=== PATIENT | female | born 1990 | race American Indian/Alaskan Native ===

== ENCOUNTER 2016-05-21 11:27 | Emergency (ER) | payer MEDICAID ==
[2016-05-21 12:27] VITALS: BP 120/77
--- NOTE | 2016-05-21 14:44 | Emergency Department Report ---
- General Chief Complaint: Upper Respiratory Infection Stated Complaint: CHEST PAIN/COUGHING UP FLIM/SORE THROAT Time Seen by Provider: 05/21/16 13:36 Source: patient Mode of arrival: Ambulatory Limitations: No Limitations - History of Present Illness MD Complaint: fever, cough, sore throat, nasal congestion -: Gradual, days(s) Severity: mild Quality: aching Context: sick contacts Associated Symptoms: fever, chills, myalgias, diaphoresis, headache, nasal congestion, sore throat, cough, nausea. denies: stiff neck, chest pain, shortness of breath, abdominal pain, vomiting, diarrhea, dysuria - Related Data Previous Rx's Medication Instructions Recorded Last Taken Type Azithromycin [Zithromax Z-KVNG] 250 mg PO QDAY #6 tablet 05/21/16 Unknown Rx Promethazine /Codeine 5 ml PO Q6H PRN #60 udc 05/21/16 Unknown Rx [Phenergan/Codeine 6.25-10 mg/5Ml] predniSONE [Deltasone] 50 mg PO QDAY #6 tab 05/21/16 Unknown Rx Allergies Allergy/AdvReac Type Severity Reaction Status Date / Time No Known Allergies Allergy Unverified 05/21/16 12:24 ED Review of Systems ROS: Stated complaint: CHEST PAIN/COUGHING UP FLIM/SORE THROAT Other details as noted in HPI Constitutional: chills, fever, malaise Eyes: denies: eye pain, eye discharge, vision change ENT: throat pain. denies: ear pain Respiratory: cough. denies: shortness of breath, SOB at rest, wheezing Cardiovascular: denies: chest pain, palpitations Endocrine: no symptoms reported Gastrointestinal: nausea. denies: abdominal pain, diarrhea Genitourinary: denies: urgency, dysuria, discharge Musculoskeletal: denies: back pain, joint swelling, arthralgia Skin: denies: rash, lesions Neurological: denies: headache, weakness, paresthesias Psychiatric: denies: anxiety, depression Hematological/Lymphatic: denies: easy bleeding, easy bruising ED Past Medical Hx - Past Medical History Hx Hypertension: Yes - Surgical History Past Surgical History?: No - Medications Home Medications: Home Medications Medication Instructions Recorded Confirmed Last Taken Type Azithromycin [Zithromax Z-KVNG] 250 mg PO QDAY #6 tablet 05/21/16 Unknown Rx Promethazine /Codeine 5 ml PO Q6H PRN #60 udc 05/21/16 Unknown Rx [Phenergan/Codeine 6.25-10 mg/5Ml] predniSONE [Deltasone] 50 mg PO QDAY #6 tab 05/21/16 Unknown Rx ED Physical Exam - General Limitations: No Limitations General appearance: alert, in no apparent distress - Head Head exam: Present: atraumatic, normocephalic - Eye Eye exam: Present: normal appearance - ENT ENT exam: Present: mucous membranes moist - Neck Neck exam: Present: normal inspection. Absent: tenderness, meningismus, full ROM, lymphadenopathy - Respiratory Respiratory exam: Present: normal lung sounds bilaterally. Absent: respiratory distress, wheezes, rales, rhonchi, stridor - Cardiovascular Cardiovascular Exam: Present: regular rate, normal rhythm. Absent: systolic murmur, diastolic murmur, rubs, gallop - GI/Abdominal GI/Abdominal exam: Present: soft, normal bowel sounds. Absent: distended, tenderness, guarding, rebound, rigid - Extremities Exam Extremities exam: Present: normal inspection - Back Exam Back exam: Present: normal inspection - Neurological Exam Neurological exam: Present: alert, oriented X3 - Psychiatric Psychiatric exam: Present: normal affect, normal mood - Skin Skin exam: Present: warm, dry, intact, normal color. Absent: rash ED Course Vital Signs 05/21/16 12:15 Temperature 98.4 F Pulse Rate 81 Respiratory 19 Rate Blood Pressure 120/77 O2 Sat by Pulse 100 Oximetry Critical care attestation.: If time is entered above; I have spent that time in minutes in the direct care of this critically ill patient, excluding procedure time. ED Disposition Clinical Impression: URI (upper respiratory infection) Disposition: DISCHARGED TO HOME OR SELFCARE Is pt being admited?: No Condition: Stable Instructions: Upper Respiratory Infection (ED) Prescriptions: Azithromycin [Zithromax Z-KVNG] 250 mg PO QDAY #6 tablet predniSONE [Deltasone] 50 mg PO QDAY #6 tab Promethazine /Codeine [Phenergan/Codeine 6.25-10 mg/5Ml] 5 ml PO Q6H PRN #60 udc PRN Reason: cough Referrals: PRIMARY CARE,MD [Primary Care Provider] - 3-5 Days Forms: Work/School Release Form(ED) Time of Disposition: 14:44
== END 2016-05-21 14:52 | disposition home or self-care (01) ==
LOC: ED 11:27
DX: J06.9 Acute upper respiratory infection, unspecified (principal); I10 Essential (primary) hypertension
CPT/HCPCS: 99282

== ENCOUNTER 2018-04-28 16:26 | Outpatient (CLI) | payer MEDICAID ==
[2018-04-28] MEDS ORDERED: LACTATED RINGERS 500 ML IV ONE (17:12)
[2018-04-28 18:08] LABS: Bilirubin,Urine NEG (Negative); Blood,Urine NEG (Negative); Color,Urine Yellow (Yellow); Mucus,Urine 2+ /HPF; Protein,Urine <15 mg/dL mg/dL (Negative)
[2018-04-28 18:37] LABS: Hematocrit 30.6 % (30.3-42.9); Hemoglobin 10.6 gm/dl (10.1-14.3); Mean Corpuscular HGB Conc 35 % (30-34); Mean Corpuscular Volume 101 fl (79-97); Platelet Count 182 K/mm3 (140-440); Red Blood Count 3.03 M/mm3 (3.65-5.03); Red Cell Distribution Width 15.5 % (13.2-15.2)
[2018-04-28 18:54] VITALS: BP 132/72
--- NOTE | 2018-04-28 19:06 | Ultrasound Report ---
FINAL REPORT EXAM: US OB LIMITED HISTORY: r/o abruption , clinical age 23 weeks 1 day TECHNIQUE: Ultrasound evaluation of the gravid uterus PRIORS: 02/24/2018 FINDINGS: There is a single viable intrauterine with documented cardiac activity. There is no ultras ound evidence of placenta previa or abruption. The maternal cervix is closed. The quantity of visua lized amniotic fluid appears grossly normal. anatomy not assessed with this limited evaluation. Heart rate: 161 beats per minute position: Transverse with head to maternal left Placental position: Anterior, grade 0 IMPRESSION: Single viable intrauterine without ultrasound evidence of placenta abruption in provided im ages
== END 2018-04-28 19:58 | disposition home or self-care (01) ==
LOC: TRG 16:26
PROVIDERS: ATTEND Obstetrics & Gynecology
DX: O47.02 False labor before 37 completed weeks of gestation, second trimester (principal); Z3A.23 23 weeks gestation of pregnancy
CPT/HCPCS: 36415; 76815; 81001; 85027

== ENCOUNTER 2018-07-10 12:05 | Outpatient (CLI) | payer MEDICAID ==
[2018-07-10] MEDS ORDERED: LACTATED RINGERS 500 ML IV ONE (12:10)
[2018-07-10 12:34] VITALS: BP 114/75
[2018-07-10 13:15] LABS: Bacteria,Urine 1+ /HPF (Negative); Bilirubin,Urine NEG (Negative); Blood,Urine NEG (Negative); Color,Urine Yellow (Yellow); Protein,Urine <15 mg/dL mg/dL (Negative); Urobilinogen,Urine < 2.0 mg/dL (<2.0); WBC,Urine < 1.0 /HPF (0.0-6.0)
[2018-07-10] MEDS ORDERED: BRETHINE ONE (13:32)
[2018-07-10] MEDS ORDERED: BRETHINE SUB-Q SCH (14:00)
[2018-07-10] MEDS ORDERED: ceFAZolin 2 GM in NACL 0.9% 100 ML IV ONE (15:12)
[2018-07-10] MEDS ORDERED: ANCEF/STERILE WATER 2 GM/20 ML 2 GM/20 ML SYRINGE IV ONE (15:22)
[2018-07-10] MEDS ORDERED: TYLENOL PO STA (15:28)
== END 2018-07-10 16:06 | disposition home or self-care (01) ==
LOC: TRG 12:05
PROVIDERS: ATTEND Obstetrics & Gynecology
DX: Z3A.33 33 weeks gestation of pregnancy (principal); O47.03 False labor before 37 completed weeks of gestation, third trimester
CPT/HCPCS: 81001; 87086; J0690; J3105; J7120

== ENCOUNTER 2018-08-13 17:05 | Outpatient (CLI) | payer MEDICAID ==
[2018-08-13 19:11] VITALS: BP 107/73
--- NOTE | 2018-08-13 20:20 | Ultrasound Report ---
PROCEDURE: US OB BPP WO NON-STRESS HISTORY: decrease movement FINDINGS: Real-time ultrasound the pelvis was performed with attention to the gravid uterus. Biophysical profile was 8 of 8. cardiac activity is present at 1 65 bpm. IMPRESSION: Biophysical profile 8 of 8 This document is electronically signed by Oziel Wills MD., Aug 13 2018 08:18:47 PM ET
[2018-08-13] MEDS ORDERED: LACTATED RINGERS 1,000 ML IV ONE (20:21)
--- NOTE | 2018-08-13 20:21 | Ultrasound Report ---
PROCEDURE: US OB LIMITED HISTORY: decrease movement FINDINGS: Real-time ultrasound of the pelvis was performed with attention to the gravid uterus. There is a single intrauterine gestation cephalic lie with amniotic fluid index of 11.9 cm which is n ormal. There is anterior grade 1 placenta. cardiac activity is present 165 beats per minute. IMPRESSION: Live intrauterine gestation in cephalic lie This document is electronically signed by Oziel Wills MD., Aug 13 2018 08:19:35 PM ET
== END 2018-08-13 21:15 | disposition home or self-care (01) ==
LOC: TRG 17:05 → LD 17:10 → TRG 18:00
PROVIDERS: ATTEND Obstetrics & Gynecology
DX: O36.8130 Decreased fetal movements, third trimester, not applicable or unspecified (principal); Z87.891 Personal history of nicotine dependence; Z3A.38 38 weeks gestation of pregnancy
CPT/HCPCS: 59025; 76815; 76819; 96360; J7120

== ENCOUNTER 2018-08-30 15:41 | Inpatient (IN) | payer MEDICAID ==
[2018-08-30] MEDS ORDERED: BRETHINE SUB-Q PRN (18:45)
[2018-08-30] MEDS ORDERED: PITOCin/NS 20 UNIT/1000ML DRIP 20 UNITS/1,000 ML BAG IV SCH (19:00)
[2018-08-30] MEDS ORDERED: AMPICILLIN/NS 2 GM/100 ML 2 GM/100 ML BAG IV ONE (19:00)
--- NOTE | 2018-08-30 19:02 | History and Physical Report ---
History of Present Illness Date of examination: 08/30/18 Date of admission: Labor History of present illness: 28 year old female presents to L&D complaining of contractions. Patient denies leaking of fluid or vaginal bleeding. Patient reports active movement. Patient received care at [facility] and records are available. EDC 09/01/2018 (based on 11 week US). significant for the following: syncopal episode at 22 weeks gestation. labs are as follows: AB+, antibody screen negative, rubella immune, RPR nonreactive, HIV negative, hepatitis B surface antigen negative, chlamydia negative, gonorrhea negative, quad screen negative, pap smear negative, hepatitis C antibody negative, hemoglobin electrophoresis negative, GBS positive. No sugar test result available. Past History Past Medical History: hypertension, other (syncopal episode earlier in ) Past Surgical History: no surgical history [employer] History: denies: abnormal PAP smear, chlamydia, gonorrhea, hepatitis B, hepatitis C, herpes, HIV, syphilis, trichomonas Family/Genetic History: diabetes, hypertension Social history: lives with family, full code. denies: smoking, alcohol abuse, prescription drug abuse, IV drug use - Obstetrical History Expected Date of Delivery: 09/01/18 Actual Gestation: 39 Week(s) 5 Day(s) : 3 Para: 1 Hx # Term Pregnancies: 2 Number of Pregnancies: 0 Spontaneous Abortions: 1 Induced : 0 Number of Living Children: 1 Medications and Allergies Allergies Allergy/AdvReac Type Severity Reaction Status Date / Time No Known Allergies Allergy Verified 04/28/18 16:58 Home Medications Medication Instructions Recorded Confirmed Last Taken Type Pnv No.95/Ferrous Fum/Folic AC 1 PO DAILY 08/13/18 08/13/18 09:00 History [ Vitamins Tablet] 1 tab Active Meds: Active Medications Ephedrine Sulfate (Ephedrine Sulfate) 10 mg IV Q2M PRN PRN Reason: Hypotension Oxytocin/Sodium Chloride (Pitocin/Ns 20 Unit/1000ml Drip) 20 units in 1,000 mls @ 125 mls/hr IV DIRECT BECCA Lactated Ringer's (Lactated Ringers) 1,000 mls @ 125 mls/hr IV DIRECT BECCA Ampicillin Sodium (Polycillin/Ns 2 Gm/100 Ml) 2 gm in 100 mls @ 100 mls/hr IV ONCE ONE; Protocol Stop: 08/30/18 19:59 Ampicillin Sodium (Ampicillin/Ns 1 Gm/50 Ml) 1 gm in 50 mls @ 100 mls/hr IV Q4HR [facility]; Protocol Terbutaline Sulfate (Brethine) 0.25 mg SUB-Q ONCE PRN PRN Reason: Hyperstimulation/Hypertonicity Review of Systems All systems: negative (contractions) - Vital Signs Vital signs: Vital Signs Temp 98.2 F 08/30/18 16:30 Temp Pulse Resp BP Pulse Ox 98.2 F 08/30/18 16:30 - Physical Exam Cardiovascular: Regular rate, Normal S1, Normal S2 Lungs: Positive: Clear to auscultation Abdomen: Positive: normal appearance, soft. Negative: distention, tenderness, guarding, rigidity Genitourinary (Female): Positive: normal external genitalia, normal perenium. Negative: perineal/vulvar lesions Vagina: Positive: normal moisture Uterus: Positive: enlarged (size=dates) Anus/Rectum: Positive: normal perianal skin Extremities: Positive: normal. Negative: tenderness, edema - Obstetrical FHR: category 1 Uterine Contraction Monitor Mode: External Cervical Dilatation: 4.5 Cervical Effacement Percentage: 80 (BBOW) station: -1 Uterine Contraction Pattern: Regular Uterine Contraction Intensity: Moderate Results All other labs normal. Assessment and Plan A: at 39 weeks, 5 days gestation. Labor. GBS positive. P: Admit. Continuous EFM. GBS prophylaxis. Anticipate vaginal .
[2018-08-30 19:29] LABS: Hematocrit 35.5 % (30.3-42.9); Hemoglobin 12.5 gm/dl (10.1-14.3); Mean Corpuscular HGB Conc 35 % (30-34); Mean Corpuscular Volume 102 fl (79-97); Platelet Count 188 K/mm3 (140-440); Red Cell Distribution Width 15.1 % (13.2-15.2)
[2018-08-30] MEDS: LACTATED RINGERS 1,000 ML IV SCH (20:30)
[2018-08-30] MEDS ORDERED: SUBLIMAZE IV ONE (21:06)
[2018-08-30] MEDS ORDERED: NARCAN 2 MG/2 ML IV PRN (22:28)
--- NOTE | 2018-08-30 22:30 | Anesthesia Consultation ---
Anesthesia Consult and Med Hx Date of service: 08/30/18 - Airway Anesthetic Teeth Evaluation: Good ROM Head & Neck: Adequate Mental/Hyoid Distance: Adequate Mallampati Class: Class II Intubation Access Assessment: Probably Good - Pulmonary Exam CTA: Yes - Cardiac Exam Cardiac Exam: RRR - Pre-Operative Health Status ASA Pre-Surgery Classification: ASA2 Proposed Anesthetic Plan: Epidural - Pulmonary Hx Smoking: No Hx Asthma: No Hx Respiratory Symptoms: No SOB: No COPD: No Home Oxygen Therapy: No Hx Pneumonia: No Hx Sleep Apnea: No - Cardiovascular System Hx Hypertension: Yes (chronic HTN) Hx Coronary Artery Disease: No Hx Heart Attack/AMI: No Hx Angina: No Hx Percutaneous Transluminal Coronary Angioplasty (PTCA): No Hx Cardia Arrhythmia: No Hx Pacemaker: No Hx Internal Defibrillator: No Hx Valvular Heart Disease: No Hx Heart Murmur: No Hx Peripheral Vascular Disease: No - Central Nervous System Hx Neuromuscular Disorder: No Hx Seizures: No CVA: No Hx Back Pain: Yes Hx Psychiatric Problems: No - Gastrointestinal Hx Ulcer: No Hx Gastroesophageal Reflux Disease: Yes - Endocrine Hx Renal Disease: No Hx End Stage Renal Disease: No Hx Cirrhosis: No Hx Liver Disease: No Hx Insulin Dependent Diabetes: No Hx Non-Insulin Dependent Diabetes: No Hx Thyroid Disease: No Hx Hypothyroidism: No Hx Hyperthyroidism: No - Hematic Hx Anemia: No Hx Sickle Cell Disease: No - Other Systems Hx Alcohol Use: No Hx Substance Use: No Hx Cancer: No Hx Obesity: No
--- NOTE | 2018-08-30 22:30 | Anesthesia Day of Surgery ---
Anesthesia Day of Surgery - Day of Surgery Patient Examined: Yes Patient H&P Reviewed: Yes Patient is NPO: Yes Beta Blockers: No Cardiac Clearance: No Pulmonary Clearance: No Clyde's Test: N/A
--- NOTE | 2018-08-30 22:31 | Post Anesthesia Evaluation ---
- Post Anesthesia Evaluation Patient Participated: Yes Airway Patent: Yes Stable Respiratory Function: Yes Nausea/Vomiting: No Temp > 96.8F: Yes Pain Manageable: Yes Adequeate Hydration: Yes Anesthesia Complications: No Block Receding Appropriately: Yes Patient on Ventilator: No
[2018-08-30] MEDS ORDERED: AMPICILLIN/NS 1 GM/50 ML 1 GM/50 ML BAG IV SCH (22:49)
[2018-08-30] MEDS ORDERED: fentaNYL-BUPIV 2 MCG/ML-0.125% 200 MCG/100 ML BAG EPIDURAL SCH (23:00)
[2018-08-31] MEDS: LACTATED RINGERS 1,000 ML IV SCH (00:43)
[2018-08-31] MEDS ORDERED: MILK OF MAGNESIA PO PRN (02:43)
[2018-08-31] MEDS ORDERED: TUCKS PAD TP PRN (02:43)
[2018-08-31] MEDS ORDERED: LANSINOH TP PRN (02:43)
[2018-08-31] MEDS ORDERED: BENADRYL PO PRN (02:43)
[2018-08-31] MEDS ORDERED: DULCOLAX PR PRN (02:43)
--- NOTE | 2018-08-31 02:53 | Procedure Note ---
OB Delivery Note - Delivery Date of Delivery: 08/31/18 Surgeon: KHLOE CROWLEY Estimated blood loss: 200cc - Vaginal Delivery presentation: vertex Delivery position: OA Delivery induction: none Delivery monitor: external FHT, external uterine Route of delivery: Delivery placenta: spontaneous Delivery cord: 3 umbilical vessels Episiotomy: none Delivery laceration: none Anesthesia: epidural Delivery comments: Spontaneous vaginal delivery at 02:32 of liveborn female infant weighing 8 lb. 4 oz. over intact perineum with apgars of 8/9. Short cord. Baby placed immediately on mother's abdomen after . Spontaneous cry and respirations. 3 vessel cord double clamped and cut. Spontaneous delivery of intact placenta and membranes. EBL 200 cc. Pitocin to IV fluid after delivery of placenta. Fundus firm and midline. Vaginal sweep negative. No lacerations noted. Sponge count correct. Mother and baby stable in birthing room.
[2018-08-31] MEDS ORDERED: SODIUM CHLORIDE FLUSH SYRINGE 10 ML IV NR (03:00)
[2018-08-31] MEDS: IBUPROFEN PO SCH ×3 (06:12→18:17)
[2018-08-31 17:18] LABS: Hemoglobin 10.3 gm/dl (10.1-14.3)
[2018-08-31] MEDS: NORCO 5/325 PO PRN (22:04)
[2018-09-01] MEDS: IBUPROFEN PO SCH ×4 (00:18→20:58)
[2018-09-01] MEDS: NORCO 5/325 PO PRN (10:03)
--- NOTE | 2018-09-01 11:08 | Progress Note ---
Assessment and Plan - Patient Problems (1) (normal spontaneous vaginal delivery) Current Visit: Yes Status: Acute Plan to address problem: Continue routine PP orders Anticipate d/c home within 24-48 hrs Subjective - Subjective Date of service: 09/01/18 Principal diagnosis: Active labor at term Interval history: See admission H & P, OB delivery summary and PP progress notes Patient reports: appetite normal, voiding normally, pain well controlled, flatus, ambulating normally, no bowel movement [place]: doing well, other (breast feeding) Objective - Vital Signs Latest vital signs: Vital Signs Temp Pulse Resp BP BP Pulse Ox 09/01/18 07:57 97.9 F 66 16 114/73 100 09/01/18 00:23 97.9 F 72 20 117/66 98 08/31/18 15:54 97.6 F 74 18 120/71 97 08/31/18 12:30 97.2 F L 76 20 123/71 Intake and Output 08/31/18 09/01/18 09/01/18 23:59 07:59 15:59 Intake Total 480 Balance 480 Intake: Oral 240 Intake, Free Water 240 Other: Total, Intake Amount 240 # Voids Void 1 - Exam Breasts: Present: normal Cardiovascular: Present: Regular rate Lungs: Present: Normal air movement Abdomen: Present: soft, normal bowel sounds Uterus: Present: firm, fundal height below umbilicus (U-1) Extremities: Present: normal Deep Tendon Reflex Grade: Normal +2 - Labs Labs: Abnormal lab results 08/31/18 Range/Units 16:48 Hct 29.0 L D (30.3-42.9) %
[2018-09-02] MEDS: IBUPROFEN PO SCH ×3 (04:09→10:40)
[2018-09-02] MEDS: NORCO 5/325 PO PRN ×2 (04:10→10:41)
--- NOTE | 2018-09-02 16:02 | Progress Note ---
Assessment and Plan A: PP Day #2 Stable P: Follow Routine Orders D/C home today RTO in 6 Weeks Subjective - Subjective Date of service: 09/02/18 Principal diagnosis: Active labor at term Patient reports: appetite normal, voiding normally, pain well controlled, flatus, bowel movement, ambulating normally [place]: doing well Objective - Vital Signs Latest vital signs: Vital Signs Temp Pulse Resp BP BP Pulse Ox 09/02/18 07:36 97.5 F L 69 16 97/61 99 09/02/18 02:28 97.9 F 74 18 109/66 98 09/01/18 16:19 98.7 F 77 18 134/83 98 Intake and Output 09/02/18 09/02/18 09/02/18 06:59 14:59 22:59 Intake Total 240 Balance 240 Intake: Intake, Free Water 240 Other: # Voids Void 1 - Exam Breasts: Present: normal Cardiovascular: Present: Regular rate Lungs: Present: Clear to auscultation, Normal air movement Abdomen: Present: normal appearance, soft, normal bowel sounds Uterus: Present: normal, firm, fundal height below umbilicus Extremities: Present: normal
--- NOTE | 2018-09-02 16:04 | Discharge Summary ---
Providers - Providers Date of Admission: 08/30/18 18:51 Date of discharge: 09/02/18 Attending physician: EDWARD WARD Primary care physician: EDWARD WARD Hospitalization Reason for admission: active labor Delivery: Episiotomy: none Laceration: none Other procedures: none complications: none Discharge diagnosis: IUP at term delivered baby: female Condition at discharge: Good Disposition: DC-01 TO HOME OR SELFCARE Plan - Provider Discharge Summary Activity: routine, no sex for 6 weeks, no heavy lifting 4 weeks, no strenuous exercise Diet: routine Instructions: routine Additional instructions: [] Smoking cessation referral if applicable(refer to patient education folder for contact #) [] Refer to [facility]'s [facility] Booklet Call your doctor immediately for: * Fever > 100.5 * Heavy vaginal bleeding ( >1 pad per hour) * Severe persistent headache * Shortness of breath * Reddened, hot, painful area to leg or breast * Drainage or odor from incision. * Keep incision clean and dry at all times and follow doctor's instructions regarding bathing/showering - Follow up plan Follow up: EDWARD WARD MD [Primary Care Provider] - 6 Weeks Forms: C Discharge Summary, DC Identification Form, Discharge Signature Page
[2018-09-02 16:50] VITALS: BP 123/86
== END 2018-09-02 16:46 | disposition home or self-care (01) | DRG 774 ==
LOC: TRG 15:41 → LD 18:51 → OB 08-31 04:06
PROVIDERS: ADMIT Obstetrics & Gynecology; ATTEND Obstetrics & Gynecology
PROC: 10E0XZZ Delivery of Products of Conception, External Approach (ICD-10-PCS; principal; 2018-08-31)
PROC: 3E0R3BZ Introduction of Anesthetic Agent into Spinal Canal, Percutaneous Approach (ICD-10-PCS; 2018-08-31)
PROC: 00HU33Z Insertion of Infusion Device into Spinal Canal, Percutaneous Approach (ICD-10-PCS; 2018-08-31)
DX: O99.824 Streptococcus B carrier state complicating childbirth (principal); O10.02 Pre-existing essential hypertension complicating childbirth; K21.9 Gastro-esophageal reflux disease without esophagitis; O99.62 Diseases of the digestive system complicating childbirth; Z3A.39 39 weeks gestation of pregnancy; Z37.0 Single live birth; Z83.3 Family history of diabetes mellitus; Z82.49 Family history of ischemic heart disease and other diseases of the circulatory system
CPT/HCPCS: 36415; 83036; 85014; 85018; 85027; 86592; 86850; 86900; 86901; G0378; A6250; J0290; J2590; J3010; J7120

== ENCOUNTER 2019-12-13 16:06 | Emergency (ER) | payer MEDICAID ==
[2019-12-13 17:13] VITALS: BP 135/84
--- NOTE | 2019-12-13 18:22 | Event Note ---
ED Screening Note Date of service: 12/13/19 Time: 18:17 ED Screening Note: This is a 29-year-old -0-1-2 who presents to the ED at about 7 weeks gestation complaining spotting with urination Last menstrual October 25, 2019 Blood type: AB+ This initial assessment/diagnostic orders/clinical plan/treatment(s) is/are subject to change based on finding with urination health status, clinical progression and re-assessment by fellow clinical providers in the ED. Further treatment and workup at subsequent clinical providers discretion. Patient/guardian urged not to elope from the ED as their condition may be serious if not clinically assessed and managed. Initial orders include: UA, quant, ultrasound
[2019-12-13 19:16] LABS: Basophils % (Auto) 0.4 % (0.0-1.8); Eosinophils % (Auto) 0.8 % (0.0-4.3); Hematocrit 37.2 % (30.3-42.9); Hemoglobin 12.9 gm/dl (10.1-14.3); Lymphocytes # (Auto) 1.5 K/mm3 (1.2-5.4); Lymphocytes % (Auto) 28.2 % (13.4-35.0); Mean Corpuscular HGB Conc 35 % (30-34); Mean Corpuscular Volume 100 fl (79-97); Monocytes # (Auto) 0.4 K/mm3 (0.0-0.8); Platelet Count 204 K/mm3 (140-440); Red Blood Count 3.73 M/mm3 (3.65-5.03); Red Cell Distribution Width 15.4 % (13.2-15.2)
[2019-12-13 19:39] LABS: Bilirubin,Urine NEG (Negative); Blood,Urine SM (Negative); Color,Urine Yellow (Yellow); Mucus,Urine FEW /HPF; Protein,Urine <15 mg/dL mg/dL (Negative); RBC,Urine < 1.0 /HPF (0.0-6.0); Urobilinogen,Urine < 2.0 mg/dL (<2.0)
--- NOTE | 2019-12-13 20:41 | Emergency Department Report ---
ED General Adult HPI - General Chief complaint: Vaginal Bleeding Stated complaint: SPOTTING/PREG Time Seen by Provider: 12/13/19 20:34 Source: patient Mode of arrival: Ambulatory Limitations: No Limitations - History of Present Illness Initial comments: Patient is 29 years old female 4 para 2 at 7 weeks gestation. Patient presented to the ER stating that she has been having vaginal spotting for the last 7 days associated with mild lower abdominal cramping. Patient denied any vaginal discharge. No dysuria. Patient also denied any nausea or vomiting. No abdominal injury. - Related Data Home Medications Medication Instructions Recorded Confirmed Last Taken Pnv No.95/Ferrous Fum/Folic AC 1 PO DAILY 08/13/18 08/13/18 09:00 [ Vitamins Tablet] 1 tab Allergies Allergy/AdvReac Type Severity Reaction Status Date / Time No Known Allergies Allergy Verified 12/13/19 17:09 ED Review of Systems ROS: Stated complaint: SPOTTING/PREG Other details as noted in HPI Comment: All other systems reviewed and negative Constitutional: denies: chills, fever Respiratory: denies: cough, orthopnea, shortness of breath, SOB with exertion, SOB at rest, wheezing Cardiovascular: denies: chest pain, palpitations Gastrointestinal: abdominal pain. denies: nausea, vomiting, diarrhea, constipation, hematemesis, melena, hematochezia Musculoskeletal: denies: back pain Neurological: denies: headache, weakness, numbness, paresthesias, confusion, abnormal gait ED Past Medical Hx - Past Medical History Hx Hypertension: Yes (chronic HTN) Hx Heart Attack/AMI: No Hx Diabetes: No Hx Deep Vein Thrombosis: No Hx Liver Disease: No Hx Renal Disease: No Hx Sickle Cell Disease: No Hx Seizures: No Hx Asthma: No Hx COPD: No Hx HIV: No - Surgical History Hx Pacemaker: No Hx Internal Defibrillator: No - Social History Smoking Status: Never Smoker Substance Use Type: None - Medications Home Medications: Home Medications Medication Instructions Recorded Confirmed Last Taken Type Pnv No.95/Ferrous Fum/Folic AC 1 PO DAILY 08/13/18 08/13/18 09:00 History [ Vitamins Tablet] 1 tab ED Physical Exam - General Limitations: No Limitations General appearance: alert, in no apparent distress - Head Head exam: Present: atraumatic, normocephalic, normal inspection - Eye Eye exam: Present: normal appearance - ENT ENT exam: Present: normal exam, normal orophraynx, mucous membranes moist - Neck Neck exam: Present: normal inspection, full ROM. Absent: tenderness, meningismus, lymphadenopathy, thyromegaly - Respiratory Respiratory exam: Present: normal lung sounds bilaterally - Cardiovascular Cardiovascular Exam: Present: regular rate, normal rhythm, normal heart sounds - GI/Abdominal GI/Abdominal exam: Present: soft, normal bowel sounds. Absent: distended, tenderness, guarding, rebound, rigid, organomegaly, mass, bruit, pulsatile mass, hernia - Extremities Exam Extremities exam: Present: normal inspection, full ROM, normal capillary refill. Absent: pedal edema, calf tenderness - Back Exam Back exam: Present: normal inspection, full ROM. Absent: CVA tenderness (R), CVA tenderness (L), muscle spasm - Neurological Exam Neurological exam: Present: alert, oriented X3, CN II-XII intact, normal gait, reflexes normal - Psychiatric Psychiatric exam: Present: normal mood - Skin Skin exam: Present: warm, intact, normal color ED Course Vital Signs 12/13/19 17:11 Temperature 99.3 F Pulse Rate 86 Respiratory 17 Rate Blood Pressure 135/84 O2 Sat by Pulse 98 Oximetry ED Medical Decision Making - Lab Data Result diagrams: 12/13/19 18:34 - Radiology Data Radiology results: report reviewed - Medical Decision Making Patient is 29 years old female 4 para 2 at 7 weeks gestation. Patient presented to the ER stating that she has been having vaginal spotting for the last 7 days associated with mild lower abdominal cramping. Patient denied any vaginal discharge. No dysuria. Patient also denied any nausea or vomiting. No abdominal injury. Patient remained stable in the ER. Labs reviewed and is unremarkable. Ultrasound showed a 7 weeks and 6 days viable . Patient advised to follow-up with her OB doctor in the next 2 to 3 days and to return to the ER if symptoms get worse or she develop any new symptoms. Critical care attestation.: If time is entered above; I have spent that time in minutes in the direct care of this critically ill patient, excluding procedure time. ED Disposition Clinical Impression: Vaginal bleeding in patient after first trimester Disposition: DC-01 TO HOME OR SELFCARE Is pt being admited?: No Condition: Stable Instructions: Abdominal Pain in (ED) Referrals: [facility] [Provider Group] - 3-5 Days
--- NOTE | 2019-12-13 20:47 | Ultrasound Report ---
ULTRASOUND OBSTETRIC INDICATION / CLINICAL INFORMATION: vag spotting. Clinical Gestational Age (GA): 7 weeks. 0 days TECHNIQUE: Transabdominal. And transvaginal approach COMPARISON: Multiple prior OB ultrasounds dated 08/13/2018 and 04/28/2018 FINDINGS: GESTATIONAL SAC: Well-defined oval shape and intrauterine in location. YOLK SAC: No significant abnormality. EMBRYO/FETUS: No significant abnormality. - [place]-Rump Length = 0.9 cm = 6 weeks. 6 days - Heart Rate, beats per minute (if present) = 114 ADNEXA: Right ovary demonstrates a complex appearing lesion measuring 2.2 x 1.5 x 2.4 cm. The left ov sergei is within normal limits. FREE FLUID: None. ADDITIONAL FINDINGS: None. IMPRESSION: 1. Single, living intrauterine with estimated sonographic age of 6 weeks 6 days. 2. Complex lesion of the right ovary may represent a complex cyst versus solid lesion. Short-term Fol low-up is recommended . Signer Name: Chip Krishnan MD Signed: 12/13/2019 8:43 PM Workstation Name: [id number]
--- NOTE | 2019-12-13 20:47 | Ultrasound Report ---
ULTRASOUND OBSTETRIC INDICATION / CLINICAL INFORMATION: vag spotting. Clinical Gestational Age (GA): 7 weeks. 0 days TECHNIQUE: Transabdominal. And transvaginal approach COMPARISON: Multiple prior OB ultrasounds dated 08/13/2018 and 04/28/2018 FINDINGS: GESTATIONAL SAC: Well-defined oval shape and intrauterine in location. YOLK SAC: No significant abnormality. EMBRYO/FETUS: No significant abnormality. - [place]-Rump Length = 0.9 cm = 6 weeks. 6 days - Heart Rate, beats per minute (if present) = 114 ADNEXA: Right ovary demonstrates a complex appearing lesion measuring 2.2 x 1.5 x 2.4 cm. The left ov sergei is within normal limits. FREE FLUID: None. ADDITIONAL FINDINGS: None. IMPRESSION: 1. Single, living intrauterine with estimated sonographic age of 6 weeks 6 days. 2. Complex lesion of the right ovary may represent a complex cyst versus solid lesion. Short-term Fol low-up is recommended . Signer Name: Chip Krishnan MD Signed: 12/13/2019 8:43 PM Workstation Name: [id number]
== END 2019-12-13 21:30 | disposition home or self-care (01) ==
LOC: ED 16:06
DX: O20.8 Other hemorrhage in early pregnancy (principal); O16.1 Unspecified maternal hypertension, first trimester; Z3A.01 Less than 8 weeks gestation of pregnancy
CPT/HCPCS: 36415; 76801; 76817; 81001; 84702; 84703; 85025; 86900; 86901

== ENCOUNTER 2019-12-22 12:13 | Emergency (ER) | payer MEDICAID ==
[2019-12-22 14:51] LABS: Bilirubin,Urine NEG (Negative); Blood,Urine NEG (Negative); Color,Urine Yellow (Yellow); Mucus,Urine FEW /HPF; Protein,Urine <15 mg/dL mg/dL (Negative); Urobilinogen,Urine < 2.0 mg/dL (<2.0); WBC,Urine < 1.0 /HPF (0.0-6.0)
[2019-12-22 15:02] LABS: HCG Qualitative,Urine Positive (Negative)
--- NOTE | 2019-12-22 15:09 | Emergency Department Report ---
ED General Adult HPI - General Chief complaint: Medical Clearance Stated complaint: DIZZINESS, 9 WKS Time Seen by Provider: 12/22/19 13:17 Source: patient Mode of arrival: Ambulatory Limitations: No Limitations - History of Present Illness Initial comments: 29-year-old -[place] female patient presents with complaints of mild headache and intermittent dizziness x2 days. Patient states she was seen by her LAP HAND TOOL yesterday with these complaints and was supposed to have labs drawn, however states that the die cut operator was unable to draw her labs and suggest that she might be dehydrated. She rates her current headache as a 5/10 in se verity and states it is in the front portion of her head. She denies any sinus congestion, cough, fever/chills/sweats, neck pain, numbness/tingling/weakness in her limbs, vision changes, or history of migraines. Patient also denies any swelling in her extremities, abdominal pain, urinary symptoms, or vaginal bleeding. She states she is 9 weeks . She is G4, . - Related Data Home Medications Medication Instructions Recorded Confirmed Last Taken Pnv No.95/Ferrous Fum/Folic AC 1 PO DAILY 08/13/18 08/13/18 09:00 [ Vitamins Tablet] 1 tab Allergies Allergy/AdvReac Type Severity Reaction Status Date / Time No Known Allergies Allergy Verified 12/13/19 17:09 ED Review of Systems ROS: Stated complaint: DIZZINESS, 9 WKS Other details as noted in HPI ED Past Medical Hx - Past Medical History Previous Medical History?: Yes Hx Hypertension: Yes (chronic HTN) Hx Heart Attack/AMI: No Hx Diabetes: No Hx Deep Vein Thrombosis: No Hx Liver Disease: No Hx Renal Disease: No Hx Sickle Cell Disease: No Hx Seizures: No Hx Asthma: No Hx COPD: No Hx HIV: No - Surgical History Past Surgical History?: No Hx Pacemaker: No Hx Internal Defibrillator: No - Social History Smoking Status: Never Smoker Substance Use Type: None - Medications Home Medications: Home Medications Medication Instructions Recorded Confirmed Last Taken Type Pnv No.95/Ferrous Fum/Folic AC 1 PO DAILY 08/13/18 08/13/18 09:00 History [ Vitamins Tablet] 1 tab ED Physical Exam - General Limitations: No Limitations General appearance: alert, in no apparent distress - Head Head exam: Present: atraumatic - Eye Eye exam: Present: normal appearance, PERRL, EOMI. Absent: scleral icterus - Neck Neck exam: Present: normal inspection - Respiratory Respiratory exam: Present: normal lung sounds bilaterally. Absent: respiratory distress - Cardiovascular Cardiovascular Exam: Present: regular rate, normal rhythm. Absent: systolic murmur, diastolic murmur, rubs, gallop - GI/Abdominal GI/Abdominal exam: Present: soft, normal bowel sounds. Absent: distended, tenderness, guarding, rebound, rigid - Extremities Exam Extremities exam: Present: normal inspection, full ROM. Absent: calf tenderness (No swelling or pain noted to legs bilaterally) - Back Exam Back exam: Present: full ROM. Absent: CVA tenderness (R), CVA tenderness (L) - Neurological Exam Neurological exam: Present: alert, oriented X3, CN II-XII intact, normal gait. Absent: motor sensory deficit - Expanded Neurological Exam Expanded Cerebellar function: Finger to Nose: Normal, Heel to Matias: Normal, Romberg: Normal Sensory exam: Upper Extremity Light Touch: Normal, Lower Extremity Light Touch: Normal Motor strength exam: RUE: 5, LUE: 5, RLE: 5, LLE: 5 - Psychiatric Psychiatric exam: Present: normal affect, normal mood - Skin Skin exam: Present: warm, dry, intact, normal color. Absent: rash, cyanosis, diaphoretic, erythema, ecchymosis ED Course Vital Signs 12/22/19 12/22/19 12:28 18:58 Temperature 98.0 F Pulse Rate 85 68 Respiratory 16 16 Rate Blood Pressure 147/81 Blood Pressure 127/85 [Left] O2 Sat by Pulse 97 100 Oximetry ED Medical Decision Making - Lab Data Result diagrams: 12/22/19 15:08 12/22/19 15:08 Lab Results 12/22/19 12/22/19 12/22/19 Range/Units 13:36 15:08 15:08 WBC 4.8 (4.5-11.0) K/mm3 RBC 3.64 L (3.65-5.03) M/mm3 Hgb 12.4 (10.1-14.3) gm/dl Hct 36.3 (30.3-42.9) % MCV 100 H (79-97) fl MCH 34 H (28-32) pg MCHC 34 (30-34) % RDW 15.2 (13.2-15.2) % Plt Count 194 (140-440) K/mm3 Lymph % (Auto) 22.5 (13.4-35.0) % Young % (Auto) 9.0 H (0.0-7.3) % Eos % (Auto) 0.5 (0.0-4.3) % Baso % (Auto) 0.5 (0.0-1.8) % Lymph # 1.1 L (1.2-5.4) K/mm3 Young # 0.4 (0.0-0.8) K/mm3 Eos # 0.0 (0.0-0.4) K/mm3 Baso # 0.0 (0.0-0.1) K/mm3 Seg Neutrophils % 67.5 (40.0-70.0) % Seg Neutrophils # 3.3 (1.8-7.7) K/mm3 Sodium 136 L (137-145) mmol/L Potassium 4.2 (3.6-5.0) mmol/L Chloride 99.1 (98-107) mmol/L Carbon Dioxide 27 (22-30) mmol/L Anion Gap 14 mmol/L BUN 10 (7-17) mg/dL Creatinine 0.8 (0.6-1.2) mg/dL Estimated GFR > 60 ml/min BUN/Creatinine Ratio 13 % Glucose 79 (65-100) mg/dL Calcium 9.3 (8.4-10.2) mg/dL Total Bilirubin 0.20 (0.1-1.2) mg/dL AST 15 (5-40) units/L ALT 21 (7-56) units/L Alkaline Phosphatase 49 (35-129) units/L Total Protein 6.4 (6.3-8.2) g/dL Albumin 4.1 (3.9-5) g/dL Albumin/Globulin Ratio 1.8 % HCG, Quant (0-4) mIU/mL Urine Color Yellow (Yellow) Urine Turbidity Clear (Clear) Urine pH 6.0 (5.0-7.0) Ur Specific [place] 1.019 (1.003-1.030) Urine Protein <15 mg/dl (Negative) mg/dL Urine Glucose (UA) Neg (Negative) mg/dL Urine Ketones Neg (Negative) mg/dL Urine Blood Neg (Negative) Urine Nitrite Neg (Negative) Urine Bilirubin Neg (Negative) Urine Urobilinogen < 2.0 (<2.0) mg/dL Ur Leukocyte Esterase Neg (Negative) Urine WBC (Auto) < 1.0 (0.0-6.0) /HPF Urine RBC (Auto) 1.0 (0.0-6.0) /HPF U Epithel Cells (Auto) 1.0 (0-13.0) /HPF Urine Mucus Few /HPF Urine HCG, Qual Positive A (Negative) 12/22/19 Range/Units 15:08 WBC (4.5-11.0) K/mm3 RBC (3.65-5.03) M/mm3 Hgb (10.1-14.3) gm/dl Hct (30.3-42.9) % MCV (79-97) fl MCH (28-32) pg MCHC (30-34) % RDW (13.2-15.2) % Plt Count (140-440) K/mm3 Lymph % (Auto) (13.4-35.0) % Young % (Auto) (0.0-7.3) % Eos % (Auto) (0.0-4.3) % Baso % (Auto) (0.0-1.8) % Lymph # (1.2-5.4) K/mm3 Young # (0.0-0.8) K/mm3 Eos # (0.0-0.4) K/mm3 Baso # (0.0-0.1) K/mm3 Seg Neutrophils % (40.0-70.0) % Seg Neutrophils # (1.8-7.7) K/mm3 Sodium (137-145) mmol/L Potassium (3.6-5.0) mmol/L Chloride (98-107) mmol/L Carbon Dioxide (22-30) mmol/L Anion Gap mmol/L BUN (7-17) mg/dL Creatinine (0.6-1.2) mg/dL Estimated GFR ml/min BUN/Creatinine Ratio % Glucose (65-100) mg/dL Calcium (8.4-10.2) mg/dL Total Bilirubin (0.1-1.2) mg/dL AST (5-40) units/L ALT (7-56) units/L Alkaline Phosphatase (35-129) units/L Total Protein (6.3-8.2) g/dL Albumin (3.9-5) g/dL Albumin/Globulin Ratio % HCG, Quant 20549 H (0-4) mIU/mL Urine Color (Yellow) Urine Turbidity (Clear) Urine pH (5.0-7.0) Ur Specific [place] (1.003-1.030) Urine Protein (Negative) mg/dL Urine Glucose (UA) (Negative) mg/dL Urine Ketones (Negative) mg/dL Urine Blood (Negative) Urine Nitrite (Negative) Urine Bilirubin (Negative) Urine Urobilinogen (<2.0) mg/dL Ur Leukocyte Esterase (Negative) Urine WBC (Auto) (0.0-6.0) /HPF Urine RBC (Auto) (0.0-6.0) /HPF U Epithel Cells (Auto) (0-13.0) /HPF Urine Mucus /HPF Urine HCG, Qual (Negative) - Radiology Data Radiology results: report reviewed ULTRASOUND OBSTETRIC INDICATION / CLINICAL INFORMATION: clear fluid leakage. TECHNIQUE: Transabdominal and Transvaginal. COMPARISON: OB ultrasound 12/13/2019 FINDINGS: GESTATIONAL SAC: Well-defined oval shape and intrauterine in location. YOLK SAC: No significant abnormality. EMBRYO/FETUS: No significant abnormality. - [place]-Rump Length = 1.7 cm = 8 weeks, 2 day(s). - Heart Rate, beats per minute (if present) = 149 ADNEXA: No significant abnormality. The previously noted 2 cm right ovarian cyst is no longer visualized FREE FLUID: None. ADDITIONAL FINDINGS: None. IMPRESSION: 1. Single, living intrauterine with estimated sonographic age of 8 weeks, 2 day(s). - Medical Decision Making 29-year-old -[place] female patient presents with complaints of mild headache and intermittent dizziness x2 days. Patient states she was seen by her LAP HAND TOOL yesterday with these complaints and was supposed to have labs drawn, however states that the die cut operator was unable to draw her labs and suggest that she might be dehydrated. She rates her current headache as a 5/10 in severity and states it is in the front portion of her head. She denies any sinus congestion, cough, fever/chills/sweats, neck pain, numbness/tingling/weakness in her limbs, vision changes, or history of migraines. Patient also denies any swelling in her extremities, abdominal pain, urinary symptoms, or vaginal bleeding. She states she is 9 weeks . She is G4, . Patient reported she noticed she was leaking clear fluid upon waking today so an ultrasound was performed that showed an 8-week 2-day viable IUP. No significant abnormalities are noted on labs or UA. Her vitals have remained normal throughout her stay. Headache has resolved with Tylenol. She is well- appearing and stable for discharge home. Recommend follow-up with her LAP HAND TOOL in 2 days. Strict return precautions were discussed in detail with patient who verbalizes understanding Critical care attestation.: If time is entered above; I have spent that time in minutes in the direct care of this critically ill patient, excluding procedure time. ED Disposition Clinical Impression: Intermittent headache Disposition: DC-01 TO HOME OR SELFCARE Is pt being admited?: No Condition: Stable Instructions: Acute Headache (ED) Additional Instructions: please follow up with your OBGYN within 2 days. [id number] Acetaminophen (tylenol) can be used as needed for headaches. Referrals: PRIMARY CARE, [Primary Care Provider] - 3-5 Days
[2019-12-22 15:29] LABS: Basophils % (Auto) 0.5 % (0.0-1.8); Eosinophils % (Auto) 0.5 % (0.0-4.3); Hematocrit 36.3 % (30.3-42.9); Hemoglobin 12.4 gm/dl (10.1-14.3); Lymphocytes # (Auto) 1.1 K/mm3 (1.2-5.4); Lymphocytes % (Auto) 22.5 % (13.4-35.0); Mean Corpuscular HGB Conc 34 % (30-34); Mean Corpuscular Volume 100 fl (79-97); Monocytes # (Auto) 0.4 K/mm3 (0.0-0.8); Platelet Count 194 K/mm3 (140-440); Red Blood Count 3.64 M/mm3 (3.65-5.03); Red Cell Distribution Width 15.2 % (13.2-15.2)
[2019-12-22 15:46] LABS: Alanine Aminotransferase 21 units/L (7-56); Albumin 4.1 g/dL (3.9-5); BUN/Creatinine Ratio 13; Blood Urea Nitrogen 10 mg/dL (7-17); Calcium 9.3 mg/dL (8.4-10.2); Hemolysis Index 8
[2019-12-22] MEDS ORDERED: ACETAMINOPHEN 500 MG TAB PO ONE (15:50)
--- NOTE | 2019-12-22 18:45 | Ultrasound Report ---
ULTRASOUND OBSTETRIC INDICATION / CLINICAL INFORMATION: clear fluid leakage. TECHNIQUE: Transabdominal and Transvaginal. COMPARISON: OB ultrasound 12/13/2019 FINDINGS: GESTATIONAL SAC: Well-defined oval shape and intrauterine in location. YOLK SAC: No significant abnormality. EMBRYO/FETUS: No significant abnormality. - [place]-Rump Length = 1.7 cm = 8 weeks, 2 day(s). - Heart Rate, beats per minute (if present) = 149 ADNEXA: No significant abnormality. The previously noted 2 cm right ovarian cyst is no longer visuali zed FREE FLUID: None. ADDITIONAL FINDINGS: None. IMPRESSION: 1. Single, living intrauterine with estimated sonographic age of 8 weeks, 2 day(s). Signer Name: Navin Roque MD Signed: 12/22/2019 6:40 PM Workstation Name: [id number]
--- NOTE | 2019-12-22 18:45 | Ultrasound Report ---
ULTRASOUND OBSTETRIC INDICATION / CLINICAL INFORMATION: clear fluid leakage. TECHNIQUE: Transabdominal and Transvaginal. COMPARISON: OB ultrasound 12/13/2019 FINDINGS: GESTATIONAL SAC: Well-defined oval shape and intrauterine in location. YOLK SAC: No significant abnormality. EMBRYO/FETUS: No significant abnormality. - [place]-Rump Length = 1.7 cm = 8 weeks, 2 day(s). - Heart Rate, beats per minute (if present) = 149 ADNEXA: No significant abnormality. The previously noted 2 cm right ovarian cyst is no longer visuali zed FREE FLUID: None. ADDITIONAL FINDINGS: None. IMPRESSION: 1. Single, living intrauterine with estimated sonographic age of 8 weeks, 2 day(s). Signer Name: Navin Roque MD Signed: 12/22/2019 6:40 PM Workstation Name: [id number]
[2019-12-22 18:59] VITALS: BP 127/85
== END 2019-12-22 18:58 | disposition home or self-care (01) ==
LOC: ED 12:13
DX: O26.891 Other specified pregnancy related conditions, first trimester (principal); R51 Headache; R42 Dizziness and giddiness; I10 Essential (primary) hypertension; Z79.899 Other long term (current) drug therapy; Z3A.08 8 weeks gestation of pregnancy
CPT/HCPCS: 36415; 76801; 76817; 80053; 81001; 81025; 84702; 85025

== ENCOUNTER 2020-01-20 20:51 | Emergency (ER) | payer MEDICAID ==
[2020-01-20 22:57] LABS: Basophils % (Auto) 0.4 % (0.0-1.8); Eosinophils % (Auto) 0.6 % (0.0-4.3); Hemoglobin 12.1 gm/dl (10.1-14.3); Mean Corpuscular HGB Conc 35 % (30-34); Mean Corpuscular Volume 98 fl (79-97); Monocytes # (Auto) 0.4 K/mm3 (0.0-0.8); Monocytes % (Auto) 8.1 % (0.0-7.3); Platelet Count 216 K/mm3 (140-440); Red Blood Count 3.56 M/mm3 (3.65-5.03); Red Cell Distribution Width 15.4 % (13.2-15.2)
--- NOTE | 2020-01-20 23:34 | Ultrasound Report ---
US OB <= 14 wk fetus add gest INDICATION / CLINICAL INFORMATION: vaginal bleeding. COMPARISON: 12/22/2019 FINDINGS: Gestational sac with pole is again demonstrated within the uterus. However, no heartbeat can be demonstrated on today's exam. [place]-rump length measures 31 mm, corresponding to a gestational age of 10 weeks 0 days, compared wit h clinical gestational age of 12 weeks 3 days. Ovaries are not identified. No obvious adnexal mass. No free fluid. IMPRESSION: 1. Findings are consistent with demise. Signer Name: Jamil White MD Signed: 01/20/2020 11:29 PM Workstation Name: [id number]
[2020-01-21 00:33] LABS: Bilirubin,Urine NEG (Negative); Blood,Urine LG (Negative); Color,Urine Yellow (Yellow); Mucus,Urine 1+ /HPF; Protein,Urine <15 mg/dL mg/dL (Negative); Urobilinogen,Urine < 2.0 mg/dL (<2.0)
--- NOTE | 2020-01-21 02:50 | Emergency Department Report ---
ED HPI - General Chief complaint: Vaginal Bleeding Stated complaint: 12 WKS PREG BLEEDING Time Seen by Provider: 01/21/20 02:46 Source: patient Mode of arrival: Ambulatory Limitations: No Limitations - History of Present Illness Initial comments: Patient is a 30-year-old female that presents emergency room with complaints of vaginal bleeding. Patient states she is 12 weeks . Patient states her vaginal bleeding started yesterday at 8 PM. Patient states that the vaginal bleeding is worsening and is a heavy flow. Patient denies abdominal pain. Patient denies abdominal cramping. Patient states she is followed by SERVICE CASHIER. Patient is taking a vitamin. Patient states she is a A1. Patient denies recent travel. Patient denies recent international travel. Patient denies exposure to the novel coronavirus. Patient denies sick contacts. Patient denies fever and chills. Patient denies cough. Patient denies diarrhea. Patient denies coming in contact with anybody with symptoms of the novel coronavirus. MD Complaint: vaginal bleeding -: Sudden Radiation: none Severity: severe Severity scale (0 -10): 0 Consistency: constant Improves with: rest Worsens with: movement Vaginal bleeding: heavy :: Yes Number of weeks : 12 OB History - Current : no complications OB History - Previous Pregnancies: no complications Pre-[place] care: followed by OB, previous ultrasound confi - Related Data Home Medications Medication Instructions Recorded Confirmed Last Taken Pnv No.95/Ferrous Fum/Folic AC 1 PO DAILY 08/13/18 08/13/18 09:00 [ Vitamins Tablet] 1 tab Allergies Allergy/AdvReac Type Severity Reaction Status Date / Time No Known Allergies Allergy Verified 12/13/19 17:09 ED Review of Systems ROS: Stated complaint: 12 WKS PREG BLEEDING Other details as noted in HPI Constitutional: denies: chills, fever Eyes: denies: eye pain, eye discharge, vision change ENT: denies: ear pain, throat pain Respiratory: denies: cough, shortness of breath, wheezing Cardiovascular: denies: chest pain, palpitations Endocrine: no symptoms reported Gastrointestinal: denies: abdominal pain, nausea, diarrhea Genitourinary: as per HPI. denies: urgency, dysuria, discharge Musculoskeletal: denies: back pain, joint swelling, arthralgia Skin: denies: rash, lesions Neurological: denies: headache, weakness, paresthesias Psychiatric: denies: anxiety, depression Hematological/Lymphatic: denies: easy bleeding, easy bruising ED Past Medical Hx - Past Medical History Previous Medical History?: Yes Hx Hypertension: Yes (chronic HTN) Hx Heart Attack/AMI: No Hx Diabetes: No Hx Deep Vein Thrombosis: No Hx Liver Disease: No Hx Renal Disease: No Hx Sickle Cell Disease: No Hx Seizures: No Hx Asthma: No Hx COPD: No Hx HIV: No - Surgical History Past Surgical History?: No Hx Pacemaker: No Hx Internal Defibrillator: No - Family History Family history: no significant - Social History Smoking Status: Never Smoker Substance Use Type: None - Medications Home Medications: Home Medications Medication Instructions Recorded Confirmed Last Taken Type Pnv No.95/Ferrous Fum/Folic AC 1 PO DAILY 08/13/18 08/13/18 09:00 History [ Vitamins Tablet] 1 tab ED Physical Exam - General Limitations: No Limitations General appearance: alert, in no apparent distress - Head Head exam: Present: atraumatic, normocephalic - Eye Eye exam: Present: normal appearance - ENT ENT exam: Present: mucous membranes moist - Neck Neck exam: Present: normal inspection - Respiratory Respiratory exam: Present: normal lung sounds bilaterally. Absent: respiratory distress - Cardiovascular Cardiovascular Exam: Present: regular rate, normal rhythm. Absent: systolic murmur, diastolic murmur, rubs, gallop - GI/Abdominal GI/Abdominal exam: Present: soft, distended, normal bowel sounds. Absent: tenderness - Extremities Exam Extremities exam: Present: normal inspection - Back Exam Back exam: Present: normal inspection - Neurological Exam Neurological exam: Present: alert, oriented X3 - Psychiatric Psychiatric exam: Present: normal affect, normal mood - Skin Skin exam: Present: warm, dry, intact, normal color. Absent: rash ED Course Vital Signs 01/20/20 01/21/20 22:13 02:55 Temperature 98.9 F Pulse Rate 75 84 Respiratory 16 16 Rate Blood Pressure 135/86 Blood Pressure 122/71 [Left] O2 Sat by Pulse 99 96 Oximetry - Reevaluation(s) Reevaluation #1: I discussed all results and clinical findings with patient. I discussed plan of care with patient. Patient agrees with plan of care. Patient is stable for discharge. Patient will be discharged home. Patient given discharge instructions. Patient voiced understanding of discharge instructions. 01/21/20 05:57 - Consultations Consultation #1: [facility]ICE C[facility]IER on-call paged 01/21/20 03:37 I discussed case with boiler operator acquisitions librarian for Dr. Morley. The boiler operator states the patient is stable for discharge can be discharged home follow-up with them in later today. 01/21/20 05:57 ED Medical Decision Making - Lab Data Result diagrams: 01/20/20 22:24 - Radiology Data Radiology results: report reviewed US OB <= 14 wk fetus add gest INDICATION / CLINICAL INFORMATION: vaginal bleeding. COMPARISON: 12/22/2019 FINDINGS: Gestational sac with pole is again demonstrated within the uterus. However, no heartbeat can be demonstrated on today's exam. [place]-rump length measures 31 mm, corresponding to a gestational age of 10 weeks 0 days, compared with clinical gestational age of 12 weeks 3 days. Ovaries are not identified. No obvious adnexal mass. No free fluid. IMPRESSION: 1. Findings are consistent with demise. - Medical Decision Making Patient is a 30-year-old female that presents emergency room with complaints of vaginal bleeding. Patient had an ultrasound done which showed intrauterine demise. Patient had labs done which were unremarkable. Patient's hCG is still positive. Patient stable for discharge. Patient discharged home. Patient require serial ultrasounds and hCG checks. - Differential Diagnosis Miscarriage, vaginal bleeding, Critical care attestation.: If time is entered above; I have spent that time in minutes in the direct care of this critically ill patient, excluding procedure time. ED Disposition Clinical Impression: Vaginal bleeding affecting early , Intrauterine , less than 22 weeks, Spontaneous miscarriage Qualifiers: Weeks of gestation: 12 weeks Qualified Code(s): Z3A.12 - 12 weeks gestation of Disposition: DC-01 TO HOME OR SELFCARE Is pt being admited?: No Does the pt Need Aspirin: No Condition: Stable Instructions: Spontaneous Miscarriage (ED) Additional Instructions: Patient to follow-up with primary care in 2 to 3 days. Patient to follow-up with SERVICE CASHIER as soon as possible and within 24 hours. Patient to rest. Patient to increase water. Patient to avoid strenuous exercise or heavy lifting until cleared by SERVICE CASHIER. Patient to take Tylenol or ibuprofen as needed for pain. Patient to take a vitamin. Patient to take meds as directed. Patient to return to the ER if condition worsens, changes or new symptoms arise. Referrals: PRIMARY CARE,MD [Primary Care Provider] - 2-3 Days Time of Disposition: 05:55
[2020-01-21 03:01] VITALS: BP 122/71
== END 2020-01-21 06:12 | disposition home or self-care (01) ==
LOC: ED 20:51
DX: O03.9 Complete or unspecified spontaneous abortion without complication (principal); O36.4XX9 Maternal care for intrauterine death, other fetus; I10 Essential (primary) hypertension; Z3A.12 12 weeks gestation of pregnancy; Z79.899 Other long term (current) drug therapy
CPT/HCPCS: 36415; 76801; 76802; 81001; 84702; 85025; 86900; 86901

== ENCOUNTER 2021-09-23 08:50 | Emergency (ER) | payer MEDICAID ==
[2021-09-23 11:12] LABS: Bilirubin,Urine NEG (Negative); Blood,Urine NEG (Negative); Color,Urine Yellow (Yellow); Mucus,Urine FEW /HPF; Protein,Urine <15 mg/dL mg/dL (Negative); Urobilinogen,Urine < 2.0 mg/dL (<2.0); WBC,Urine < 1.0 /HPF (0.0-6.0)
[2021-09-23] MEDS ORDERED: dexAMETHasone 20 MG/5 ML VIAL IM ONE (11:32)
[2021-09-23] MEDS ORDERED: ACETAMINOPHEN 325 MG/10.15 ML ORAL LIQD UNIT DOSE PO ONE (11:32)
--- NOTE | 2021-09-23 11:54 | Emergency Department Report ---
ED General Adult HPI - General Chief complaint: Nausea/Vomiting/Diarrhea Stated complaint: 13WKS PREG/THROAT PAIN/HEADACHE Time Seen by Provider: 09/23/21 11:31 Source: patient Mode of arrival: Ambulatory Limitations: No Limitations - History of Present Illness Initial comments: Patient 31-year-old female who presents for sore throat x 2 days. Patient d enies fever or chills. Patient is currently 13 weeks . Patient does have other children at home. No however no other children are sick. Symptoms are exacerbated by swallowing described as burning pain 4/10. Symptoms are relieved by hot liquids and rest. There is no shortness of breath no wheezing no stridor. No history of asthma. Severity scale (0 -10): 10 - Related Data Home Medications Medication Instructions Recorded Confirmed Last Taken Pnv No.95/Ferrous Fum/Folic AC 1 PO DAILY 08/13/18 08/13/18 09:00 [ Vitamins Tablet] 1 tab Previous Rx's Medication Instructions Recorded Last Taken Type Acetaminophen [Acetaminophen TAB] 650 mg PO Q6HR PRN #30 tablet 09/23/21 Unknown Rx Amoxicillin/K Clav Tab [Augmentin 1 tab PO BID 7 Days #14 tab 09/23/21 Unknown Rx 875 mg] dexAMETHasone [Decadron] 4 mg PO BID 3 Days #6 tablet 09/23/21 Unknown Rx Allergies Allergy/AdvReac Type Severity Reaction Status Date / Time No Known Allergies Allergy Verified 12/13/19 17:09 ED Review of Systems ROS: Stated complaint: 13WKS PREG/THROAT PAIN/HEADACHE Other details as noted in HPI Constitutional: malaise Eyes: denies: eye pain, eye discharge, vision change ENT: throat pain. denies: ear pain, congestion Respiratory: denies: cough, shortness of breath, wheezing Cardiovascular: denies: chest pain, palpitations Endocrine: no symptoms reported Gastrointestinal: denies: abdominal pain, nausea, vomiting, diarrhea Genitourinary: denies: urgency, dysuria, discharge Musculoskeletal: denies: back pain, joint swelling, arthralgia Skin: denies: rash, lesions Neurological: denies: headache, weakness, paresthesias, vertigo Psychiatric: denies: anxiety, depression Hematological/Lymphatic: denies: easy bleeding, easy bruising ED Past Medical Hx - Past Medical History Previous Medical History?: Yes Hx Hypertension: Yes (chronic HTN) Hx Heart Attack/AMI: No Hx Diabetes: No Hx Deep Vein Thrombosis: No Hx Liver Disease: No Hx Renal Disease: No Hx Sickle Cell Disease: No Hx Seizures: No Hx Asthma: No Hx COPD: No Hx HIV: No - Surgical History Past Surgical History?: No Hx Pacemaker: No Hx Internal Defibrillator: No - Social History Smoking Status: Never Smoker Substance Use Type: None - Medications Home Medications: Home Medications Medication Instructions Recorded Confirmed Last Taken Type Pnv No.95/Ferrous Fum/Folic AC 1 PO DAILY 08/13/18 08/13/18 09:00 History [ Vitamins Tablet] 1 tab Acetaminophen [Acetaminophen TAB] 650 mg PO Q6HR PRN #30 tablet 09/23/21 Unknown Rx Amoxicillin/K Clav Tab [Augmentin 1 tab PO BID 7 Days #14 tab 09/23/21 Unknown Rx 875 mg] dexAMETHasone [Decadron] 4 mg PO BID 3 Days #6 tablet 09/23/21 Unknown Rx ED Physical Exam - General Limitations: No Limitations General appearance: alert, in no apparent distress - Head Head exam: Present: normocephalic, normal inspection - Eye Eye exam: Present: normal appearance, PERRL, EOMI. Absent: conjunctival injection, nystagmus Pupils: Present: normal accommodation - ENT ENT exam: Present: mucous membranes moist, TM's normal bilaterally, normal external ear exam - Expanded ENT Exam Expanded Ear exam: Present: normal external inspection Mouth exam: Absent: trismus Throat exam: Positive: tonsillar erythema, tonsillomegaly. Negative: tonsillar exudate, R peritonsillar mass, L peritonsillar mass - Neck Neck exam: Present: tenderness, full ROM, lymphadenopathy - Respiratory Respiratory exam: Present: normal lung sounds bilaterally. Absent: respiratory distress, wheezes, stridor, chest wall tenderness - Cardiovascular Cardiovascular Exam: Present: regular rate, normal rhythm, normal heart sounds. Absent: systolic murmur, diastolic murmur, rubs, gallop - GI/Abdominal GI/Abdominal exam: Present: soft, normal bowel sounds - Rectal Rectal exam: Present: deferred - Extremities Exam Extremities exam: Present: normal inspection, full ROM, normal capillary refill. Absent: pedal edema - Back Exam Back exam: Present: normal inspection, full ROM. Absent: CVA tenderness (R), CVA tenderness (L) - Neurological Exam Neurological exam: Present: alert, oriented X3, CN II-XII intact, normal gait - Expanded Neurological Exam Expanded Patient oriented to: Present: person, place, time - Psychiatric Psychiatric exam: Present: normal affect, normal mood - Skin Skin exam: Present: warm, dry, intact, normal color. Absent: rash ED Course Vital Signs 09/23/21 09:12 Temperature 99.6 F Pulse Rate 89 Respiratory 18 Rate Blood Pressure 123/76 [Left] O2 Sat by Pulse 100 Oximetry ED Medical Decision Making - Medical Decision Making Pain is improved. This is pharyngitis with bilateral tonsillar swelling no exudates or lesions airway is patent uvula is midline there is no stridor or wheezing. No fever noted today. Patient did not record T-max at home. Plan DC to home, short burst steroids antibiotics as patient is 13 weeks , Tylenol as needed for pain and fever. Follow-up with [facility] follow-up with primary care doctor return to emergency department should symptoms worsen. He verbalized agreement and understanding of discharge plan patient DC'd home in stable condition at this time. Patient is currently tolerating p.o. intake without nausea vomiting. Critical care attestation.: If time is entered above; I have spent that time in minutes in the direct care of this critically ill patient, excluding procedure time. ED Disposition Clinical Impression: Pharyngitis Qualifiers: Pharyngitis/tonsillitis etiology: unspecified etiology Qualified Code(s): J02.9 - Acute pharyngitis, unspecified Disposition: 01 HOME / SELF CARE / HOMELESS Is pt being admited?: No Does the pt Need Aspirin: No Condition: Stable Instructions: Pharyngitis Additional Instructions: Take medications as prescribed, follow-up with your primary care doctor in 2 to 3 days. Continue to follow-up with your [facility] as scheduled. Return to emergency department should symptoms worsen or unable to tolerate by mouth eating or swallowing liquids. Prescriptions: Acetaminophen [Acetaminophen TAB] 650 mg PO Q6HR PRN #30 tablet PRN Reason: Pain Fever Amoxicillin/K Clav Tab [Augmentin 875 mg] 1 tab PO BID 7 Days #14 tab dexAMETHasone [Decadron] 4 mg PO BID 3 Days #6 tablet Referrals: LUDIN ALMENDAREZ MD [Staff Physician] - 3-5 Days LEIF GUARDADO MD [Staff Physician] - 3-5 Days Forms: Work/School Release Form(ED) Time of Disposition: 12:06
[2021-09-23] MEDS ORDERED: AMOXICILLIN/K CLAV 875/125MG TAB PO ONE (11:56)
[2021-09-23 12:48] VITALS: BP 124/71
--- NOTE | 2021-09-23 21:45 | Electrocardiograph Report ---
[facility] Test Date: 2021-09-23 Test Time: 09:21:46 Pat Name: FELTON ALMENDAREZ Department: Room: Gender: F Stogy Roller: JAH : 1990 Requested By: ED DOC Order Number: [id number] Reading MD: Abdias Borja Measurements Intervals [place] Rate: 89 P: 64 MI: 142 QRS: -15 QRSD: 85 T: 36 QT: 350 QTc: 426 Interpretive Statements Sinus rhythm Probable left atrial enlargement Probable anteroseptal infarct, old No previous ECG available for comparison Electronically Signed On 09-23-2021 21:45:10 EDT by Abdias Borja
== END 2021-09-23 12:58 | disposition home or self-care (01) ==
LOC: ED 08:50
DX: O26.891 Other specified pregnancy related conditions, first trimester (principal); J02.9 Acute pharyngitis, unspecified; Z3A.13 13 weeks gestation of pregnancy; I10 Essential (primary) hypertension
CPT/HCPCS: 81001; 93005; 96372; 99283; J1100

== ENCOUNTER 2021-11-16 13:49 | Outpatient (CLI) | payer MEDICAID ==
[2021-11-16 15:29] VITALS: BP 132/82
[2021-11-16] MEDS ORDERED: ACETAMINOPHEN 500 MG TAB PO ONE (20:15)
[2021-11-16 23:08] LABS: Color,Urine Colorless (Yellow)
[2021-11-16 23:09] LABS: Bilirubin,Urine Negative (Negative); Blood,Urine Negative (Negative); Protein,Urine <15 mg/dL mg/dL (Negative); Urobilinogen,Urine 0.2 mg/dL (<2.0)
[2021-11-16 23:16] LABS: Mucus,Urine FEW /HPF
== END 2021-11-16 20:05 | disposition left against medical advice (07) ==
LOC: TRG 13:49 → APU 15:17 → TRG 20:05
PROVIDERS: ATTEND Obstetrics & Gynecology
DX: O26.892 Other specified pregnancy related conditions, second trimester (principal); R10.2 Pelvic and perineal pain; Z3A.21 21 weeks gestation of pregnancy
CPT/HCPCS: 81001